=== PATIENT | female | born 1950 | race Caucasian/White ===

== ENCOUNTER 2019-09-19 11:37 | Emergency (ER) | payer OTHER ==
[~2019-09-19] VITALS: Ht 154.9 cm; Wt 102.5 kg
[2019-09-19] MEDS ORDERED: VASOTEC20 M1 (11:58)
[2019-09-19] MEDS ORDERED: ALL DAY ALLERGY10 M3 (11:59)
[2019-09-19] MEDS ORDERED: ASPIR 8181 MG (11:59)
[2019-09-19] MEDS ORDERED: LIPITOR20 MG (11:59)
[2019-09-19] MEDS ORDERED: NORFLEX100MG PO (15:04)
[2019-09-19] MEDS ORDERED: KETO10TA2 PO (15:04)
== END 2019-09-19 15:24 | disposition home or self-care (01) ==
LOC: ER 11:37
DX: R10.32 Left lower quadrant pain (principal)